=== PATIENT | female | born 1955 ===

== ENCOUNTER 2019-12-05 18:21 | Outpatient (REF) | payer MEDICARE, OTHER, SELFPAY | END 2019-12-05 18:41 | LOC: NCHCN 18:21 | PROVIDERS: Visit Provider Nurse Practitioner Community Health | DX: J02.9 Acute pharyngitis, unspecified (principal) | CPT/HCPCS: 87070 ==

== ENCOUNTER 2023-07-25 08:12 | Outpatient (REF) | payer MEDICARE, OTHER, SELFPAY ==
--- OUTSIDE RECORDS SUMMARY | 2023-07-25 08:19 | XMS_ITS ---
Author Name Unknown Organization [facility] Endocrin ology at [facility] Address [address] [place] [address] - [facility] [phone] Care Team Providers Care Twisting Department End Finder Name Role Phone NOT IN DICTIONARY, T Primary Care Physician Unav ailable ElderYvette Unavailable Unavailable January Unavailable Unavailable Kirill Carter Unavailable Unavailable Kayla Gamez Unavailable Unavailable Encounter 05/25/21 - 05/25/21 [facility] Endocrinology at [address] - [facility] Encounter Diagnosis OSTEOPOROSIS(Discharge Diagnosis) - 05/25/21 HYPERLIPIDEMIA, BORDERLINE(Discharge Diagnosis) - 05/25/21 HYPERTENSION, MILD(Discharge Diagnosis) - 05/25/21 HYPOTHYROIDISM(Discharge Diagnosis) - 05/25/21 PREDIABETES(Discharge Diagnosis) - 05/25/21 Paraganglioma(Discharge Diagnosis) - 05/25/21 Attending Physician: Sarkis Beach MD Admitting Physician: Sarkis Beach MD Referring Physician: [id number] -SELF-REFERRED, Problem List Condition Effective Dates Status Health Status Inform ant HYPERLIPIDEMIA, BORDERLINE(Confirmed) 05/20/11 Active HYPERTENSION, MILD(Confirmed) 05/20/11 Active HYPOTHYROIDISM(Confirmed) 05/20/11 Active PREDIABETES(Confirmed) 05/20/11 Active OSTEOPOROSIS(Confirmed) 12/02/11 Active Paraganglioma(Confirmed) Active Allergies, Adverse Reactions, Alerts Substance Reaction Severity Status amoxicillin Active sulfamethoxazole Active Bactrim Active Medications acetaminophen-HYDROcodone 300 mg-5 mg oral tablet 1/2 tab by mouth daily as needed Start Date: 03/18/15 Stop Date: 03/22/18 Status: Discontinued Advil 200 mg oral tablet 1 tab by mouth daily Start Date: 02/05/14 Stop Date: 03/22/18 Status: Discontinued Advil PM Liqui-Gels 25 mg-200 mg oral capsule cap, Cap, PO, Nightly, PRN as needed for insomnia, # 16 cap, 1 tab by mouth daily Start Date: 02/05/14 Stop Date: 03/22/18 Status: Discontinued alendronate 70 mg oral tablet 70 mg = 1 tab, PO, q7day, # 13 tab, 3 Refill(s), Pharmacy: [facility] #[facility], Rx or Hx Med Start Date: 09/08/19 Stop Date: 09/25/19 Status: Discontinued clonazePAM 0.5 mg oral tablet 0.25 mg = 0.5 tab, PO, Daily Start Date: 03/18/15 Stop Date: 05/25/21 Status: Discontinued Cymbalta 30 mg oral delayed release capsule 90 mg = 3 cap, PO, Daily Start Date: 03/18/15 Status: Ordered gabapentin 300 mg oral capsule 600 mg = 2 cap, PO, Daily Start Date: 03/17/16 Status: Ordered ibuprofen 0 Refill(s), Rx or Hx Med Start Date: 07/24/19 Stop Date: 05/25/21 Status: Discontinued Reclast 5 mg, IV, One Time, 0 Refill(s), Rx or Hx Med Start Date: 05/19/20 Status: Ordered Synthroid 75 mcg (0.075 mg) oral tablet See Instructions, # 90 tab, 3 Refill(s), eRx: [facility] #[facility] Start Date: 04/15/17 Stop Date: 04/07/18 Status: Discontinued Synthroid 75 mcg (0.075 mg) oral tablet 75 mcg = 1 tab, PO, Daily, # 90 tab, 3 Refill(s), [id number], 163, 09/04/19 13:31:00 EST, cm, Height/Length Dosing, 76.36, 09/04/19 13:31:00 EST, kg, Weight Dosing Start Date: 05/18/21 Status: Ordered Synthroid 75 mcg (0.075 mg) oral tablet 75 mcg = 1 tab, Tab, PO, Daily, # 90 tab, 3 Refill(s), Pharmacy: [facility] #[facility], Rx or Hx Med Start Date: 04/14/17 Stop Date: 04/14/17 Status: Completed Synthroid 75 mcg (0.075 mg) oral tablet 75 mcg = 1 tab, Tab, PO, Daily, # 90 tab, 3 Refill(s), Pharmacy: [facility] #[facility], Rx or Hx Med Start Date: 04/14/17 Stop Date: 04/15/17 Status: Completed Synthroid 75 mcg (0.075 mg) oral tablet 75 mcg = 1 tab, PO, Daily, # 90 tab, 3 Refill(s), Pharmacy: [facility] #[facility] Start Date: 04/07/18 Stop Date: 05/29/19 Status: Discontinued Synthroid 75 mcg (0.075 mg) oral tablet 1 tab by mouth daily Start Date: 05/20/11 Stop Date: 04/14/17 Status: Discontinued Synthroid 75 mcg (0.075 mg) oral tablet 75 mcg = 1 tab, PO, Daily, # 90 tab, 3 Refill(s), Pharmacy: [facility] #[id number], 163, 09/04/19 13:31:00 EST, cm, Height/Length Dosing, 76.36, 09/04/19 13:31:00 EST, kg, Weight Dosing Start Date: 05/15/20 Stop Date: 05/18/21 Status: Completed Synthroid 75 mcg (0.075 mg) oral tablet 75 mcg = 1 tab, PO, Daily, # 90 tab, 3 Refill(s), Pharmacy: [facility] Start Date: 05/29/19 Stop Date: 05/15/20 Status: Completed traMADol PO, 0 Refill(s), Rx or Hx Med Start Date: 05/25/21 Stop Date: 05/25/21 Status: Discontinued traMADol 50 mg oral tablet 50 mg = 1 tab, Tab, PO, q12h, PRN PRN as needed for pain, # 30 tab, 0 Refill(s), other reason (Rx),Rx or Hx Med Start Date: 03/22/18 Stop Date: 05/17/19 Status: Discontinued traZODone 50 mg oral tablet 50 mg = 1 tab, Tab, PO, Nightly, # 30 tab, 0 Refill(s), other reason (Rx), Rx or Hx Med Start Date: 05/25/21 Status: Ordered Assessment and Plan Future Appointments Appointment Date:05/31/2022 11:30:00 AM Scheduled Provider:Sarkis Beach MD Location:[facility] [place] Endocrinology at [facility] Appointment Type:Return Appointment Future Scheduled Tests Laboratory* Vitamin D-25 Hydroxy Level 10/24/19 * Vitamin D-25 Hydroxy Level 05/03/22 * Hemoglobin A1C Glycosylated 05/03/22 * Lipid Pnl 05/03/22 * Complete Blood Count w/ Differential 05/03/22 * Comprehensive Metabolic Panel 10/24/19 * Comprehensive Metabolic Panel 05/03/22 * Thyroid Stimulating Hormone 05/03/22 * T4 Free 05/03/22 * Metanephrines, Plasma (Free) 05/03/22 Radiology* DXA Axial and Append Bone Density 03/30/21 * US Head and Neck Soft Tissue 05/25/21 Social History Social History Type Response Smoking Status Never smoker Sex Vital Signs Most recent to oldest [Reference Range]: 1 2 Temperature Temporal [36.3-37.8 DegC] 36 .2 DegC *LOW* (05/25/21 11:46 AM) Respiratory Rate [12-20 BR/min] 18 BR/mi n (05/25/21 11:46 AM) Blood Pressure [90-140/60-90 mmHg] 127/8 1mmHg (05/25/21 12:45 PM) 144/81mmHg *HI* (05/25/21 11:46 AM) BP Extremity, Automated Left upper extre mity (05/25/21 11:46 AM) Patient Position BP Sitting (05/25/21 11:46 AM) Type of Visit Telehealth In Person (05/25/21 11:46 AM)
--- OUTSIDE RECORDS SUMMARY | 2023-07-25 08:19 | XMS_ITS | Continuity of Care Document ---
Author Name Unknown Organization [facility] Address [address] [facility]: [phone] [place], [place] - Care Team Providers Care Hip Hop Dancer Name Role Phone NOT IN DICTIONARY, T Primary Care Physician Unav ailable ElderYvette Unavailable Unavailable January Unavailable Unavailable Kirill Carter Unavailable Unavailable Kayla Gamez Unavailable Unavailable Encounter 06/02/21 - 07/02/[address] - Encounter Diagnosis Other specified disorders of bone density and structure, multiple sites(Final) - 06/02/21 Discharge Disposition: Disch to home or self care-Routine Attending Physician: Sarkis Beach MD Admitting Physician: Sarkis Beach MD Referring Physician: Sarkis Beach MD Allergies, Adverse Reactions, Alerts Substance Reaction Severity Status amoxicillin Active sulfamethoxazole Active Bactrim Active Assessment and Plan Future Appointments Appointment Date:05/31/2022 11:30:00 AM Scheduled Provider:Sarkis Beach MD [place] [place] [facility] Appointment Type:Return Appointment Future Scheduled Tests Laboratory* [...] US Head and Neck Soft Tissue 05/25/21 Medications acetaminophen-HYDROcodone 300 mg-5 mg oral tablet [...] q7day, # 13 tab, 3 Refill(s), Pharmacy: [facility] #[facility], Rx or Hx [...] Instructions, # 90 tab, 3 Refill(s), eRx: [facility] Start Date: 04/15/17 Stop Date: 04/07/18 Status: Discontinued Synthroid 75 mcg (0.075 mg) oral tablet 75 mcg = 1 tab, PO, Daily, # 90 tab, 3 Refill(s), Pharmacy: [facility] #[id number], 163, 09/04/19 13:31:00 EST, cm, Height/Length Dosing, 76.36, 09/04/19 13:31:00 EST, kg, Weight Dosing Start Date: 05/18/21 Status: Ordered Synthroid 75 mcg (0.075 mg) oral tablet 75 mcg = 1 tab, Tab, PO, Daily, # 90 tab, 3 Refill(s), Pharmacy: [facility] #[facility], Rx or Hx Med Start Date: 04/14/17 Stop Date: 04/14/17 Status: Completed Synthroid 75 mcg (0.075 mg) oral tablet 75 mcg = 1 tab, Tab, PO, Daily, # 90 tab, 3 Refill(s), Pharmacy: [facility] #[facility], Rx or Hx Med Start Date: 04/14/17 Stop Date: 04/15/17 Status: Completed Synthroid 75 mcg (0.075 mg) oral tablet 75 mcg = 1 tab, PO, Daily, # 90 tab, 3 Refill(s), Pharmacy: [facility] #[facility] Start Date: 04/07/18 Stop Date: 05/29/19 Status: Discontinued Synthroid 75 mcg (0.075 mg) oral tablet 1 tab by mouth daily Start Date: 05/20/11 Stop Date: 04/14/17 Status: Discontinued Synthroid 75 mcg (0.075 mg) oral tablet 75 mcg = 1 tab, PO, Daily, # 90 tab, 3 Refill(s), Pharmacy: [facility] #100, 163, 09/04/19 13:31:00 EST, cm, Height/Length Dosing, 76.36, 09/04/19 13:31:00 EST, kg, Weight Dosing Start Date: 05/15/20 Stop Date: 05/18/21 Status: Completed Synthroid 75 mcg (0.075 mg) oral tablet 75 mcg = 1 tab, PO, Daily, # 90 tab, 3 Refill(s), Pharmacy: [facility] Start Date: 05/29/19 [...] Hx Med Start Date: 05/25/21 Status: Ordered Problem List Condition Effective Dates Status Health Status Inform ant HYPERLIPIDEMIA, BORDERLINE(Confirmed) 05/20/11 Active HYPERTENSION, MILD(Confirmed) 05/20/11 Active HYPOTHYROIDISM(Confirmed) 05/20/11 Active PREDIABETES(Confirmed) 05/20/11 Active OSTEOPOROSIS(Confirmed) 12/02/11 Active Paraganglioma(Confirmed) Active Social History Social History Type Response Smoking Status Never smoker Sex
--- OUTSIDE RECORDS SUMMARY | 2023-07-25 08:19 | XMS_ITS ---
Author Name Unknown Organization [facility] Endocrin [facility]y at [facility] Address [address] [place] [address] - [facility] [phone] Care Team Providers Care Dough Catcher Name Role Phone NOT IN DICTIONARY, T Primary Care Physician Unav ailable ElderYvette Unavailable Unavailable January Unavailable Unavailable Kirill Carter Unavailable Unavailable Kayla Gamez Unavailable Unavailable Encounter 05/17/22 - 05/17/22 [facility] Endocrinology at [address] [facility] Encounter Diagnosis HYPERLIPIDEMIA, BORDERLINE(Discharge Diagnosis) - 05/17/22 Paraganglioma(Discharge Diagnosis) - 05/17/22 HYPERTENSION, MILD(Discharge Diagnosis) - 05/17/22 OSTEOPOROSIS(Discharge Diagnosis) - 05/17/22 HYPOTHYROIDISM(Discharge Diagnosis) - 05/17/22 PREDIABETES(Discharge Diagnosis) - 05/17/22 Attending Physician: MD Yong, Sarkis العراقي Admitting Physician: MD Yong, Sarkis العراقي Referring Physician: SELF-REFERRED, Problem List Condition Effective Dates Status Health [...] Daily, # 90 tab, 3 Refill(s), [id number], 163, 09/04/19 13:31:00 EST, cm, Height/Length Dosing, 76.36, 09/04/19 13:31:00 EST, kg, Weight Dosing Start Date: 05/18/21 Stop Date: 05/07/22 Status: Completed Synthroid 75 mcg (0.075 mg) [...] Daily, # 90 tab, 3 Refill(s), [id number] Start Date: 05/07/22 Status: Ordered Synthroid 75 mcg (0.075 mg) [...] 05/25/21 Status: Ordered Assessment and Plan Future Scheduled Tests Laboratory* Vitamin D-25 Hydroxy Level 05/03/22 * Vitamin D-25 Hydroxy Level 05/17/22 * Hemoglobin A1C Glycosylated 05/03/22 * Hemoglobin A1C Glycosylated 05/17/22 * Lipid Pnl 05/03/22 * Lipid Pnl 05/17/22 * Complete Blood Count w/ Differential 05/03/22 * Comprehensive Metabolic Panel 05/03/22 * Comprehensive Metabolic Panel 05/17/22 * Thyroid Stimulating Hormone 05/03/22 * Thyroid Stimulating Hormone 05/17/22 * T4 Free 05/03/22 * T4 Free 05/17/22 * Metanephrines, Plasma (Free) 05/03/22 * Metanephrines, Plasma (Free) 05/17/22 * Chromogranin A Lvl 05/17/22 Radiology* DXA Axial and Append Bone Density 05/17/23 * US Head and Neck Soft Tissue 05/25/21 Social History Social History Type Response Smoking Status Never smoker Sex Female Vital Signs Most recent to oldest [Reference Range]: 1 Temperature Temporal [36.3-37.8 DegC] 36 .4 DegC (05/17/22 4:31 PM) BP Extremity, Automated Left upper extre mity (05/17/22 4:31 PM) Patient Position BP Sitting (05/17/22 4:31 PM) Type of Visit Telehealth In Person (05/17/22 4:31 PM) Weight Dosing 60 kg (05/17/22 4:31 PM) Care Team Personnel Name: NOT IN DICTIONARY, T Name: Yvette Sinha Name: January Name: Kirill Carter Name: Kayla Gamez
[2023-07-25 15:08] LABS: ALT 25 U/L (14-59); AST 17 U/L (15-37); Albumin 3.6 g/dL (3.4-5.0); Alkaline Phosphatase 59 U/L (46-116); BUN 16 mg/dL (7-18); Bilirubin, Total 0.3 mg/dL (0.2-1.0); CREATININE 0.9 mg/dL (0.55-1.02); Calcium 9.2 mg/dL (8.5-10.1); Chloride 104 mmol/L (98-107); Glucose 92 mg/dL (74-106); Potassium 3.9 mmol/L (3.5-5.1); Sodium 140 mmol/L (136-145); Total Protein 6.7 g/dL (6.4-8.2)
== END 2023-07-25 08:13 | disposition home or self-care (01) ==
LOC: LBN 08:12
PROVIDERS: Visit Provider Family Medicine
DX: M81.0 Age-related osteoporosis without current pathological fracture (principal)
CPT/HCPCS: 80053